=== PATIENT | male | born 1985 | race African-American/Black ===

== ENCOUNTER 2017-01-01 10:40 | Emergency (ER) | payer MEDICAID ==
[~2017-01-01] VITALS: Ht 182.9 cm; Wt 100.0 kg
[2017-01-01 14:45] VITALS: BP 126/78
== END 2017-01-01 16:05 | disposition home or self-care (01) ==
LOC: ER 15:03
DX: R21 Rash and other nonspecific skin eruption (principal); F12.10 Cannabis abuse, uncomplicated
CPT/HCPCS: 99283